=== PATIENT | female | born 1985 | race Caucasian/White ===

== ENCOUNTER 2018-03-23 12:15 | Emergency (ER) | payer OTHER ==
[~2018-03-23] VITALS: Ht 165.1 cm; Wt 54.4 kg
[~2018-03-23 12:15] MED LIST: AMOX500 PO; BELPTAB PO; CARB50; CEPH500 PO; CLIN300 PO; CYAN100; Cleocin HCl300 MG PO; DIPATR PO; DOXY100 PO; ESTROGEN SUPPLEMENT; HYDACE5; HYDACE5 PO; HYDMOR2 PO; LACT10SY PO; LEVFLO500 PO; MAGCIT300 PO; MEDR150I; MULVITMINE; OMEP20ER PO; OXYACE5T PO; OXYACE7.5T; PARO25; PROC10 PO; PROC25S PR; PROM25 PO; Percocet 5-3251 EACH PO; RANI150; RXDIPATR PO; RXHYDMOR2 PO; RXOXYACE PO; SERT50; STOMUL
[2018-03-23] MEDS ORDERED: KETO10 PO (13:02)
[2018-03-23] MEDS ORDERED: NYST237S UD (13:02)
[2018-03-23] MEDS ORDERED: Zovirax400 MG PO (13:02)
== END 2018-03-23 13:08 | disposition home or self-care (01) ==
LOC: ER 12:15
DX: S16.1XXA Strain of muscle, fascia and tendon at neck level, initial encounter (principal); B00.2 Herpesviral gingivostomatitis and pharyngotonsillitis; F32.9 Major depressive disorder, single episode, unspecified; F17.200 Nicotine dependence, unspecified, uncomplicated; Z79.899 Other long term (current) drug therapy; V49.9XXA Car occupant (driver) (passenger) injured in unspecified traffic accident, initial encounter
CPT/HCPCS: 99282